=== PATIENT | female | born 1985 | race Two or more races ===

== ENCOUNTER 2020-08-23 07:13 | Inpatient (IN) ==
[2020-08-23] MEDS ORDERED: Lactated Ringers 1000 ml BAG 1,000 ML IV ONE ×2 (08:47→18:22)
[2020-08-23] MEDS ORDERED: Buffered Lidocaine 1% SYRIN 1 ml INTRADERM ONE (08:47)
[2020-08-23 09:46] LABS: ABS Eosinophils 0.1 10^3/ul (0-0.6); ABS Monocytes 0.7 10^3/ul (0-0.8); ABS Neutrophils 9.4 10^3/ul (1.5-7.7); Eosinophil % 0.8 %; Hematocrit 38 % (35-47); Hemoglobin 12.8 g/dL (12.0-16.0); Lymphocyte % 16.3 %; Mean Corpuscular HGB Conc 34 g/dL (31-36); Mean Corpuscular Hemoglobin 28 pg (27-31); Mean Corpuscular Volume 85 fL (80-97); Mean Platelet Volume 8.7 fL (7.4-10.4); Platelet Count 267 10^3/uL (150-450); Red Blood Count 4.52 10^6 /uL (3.70-4.87); Red Cell Distribution Width 14 % (10-15); White Blood Count 12.2 10^3/uL (3.5-10.8)
[2020-08-23 10:12] LABS: Urine Benzodiazepine Screen None Detected (None Detect); Urine Cannabinoids Screen None Detected (None Detect); Urine Opiates Screen None Detected (None Detect)
[2020-08-23] MEDS ORDERED: OBEPIDURAL 250 ML EPIDURAL ONE (13:38)
[2020-08-23] MEDS ORDERED: fentaNYL 250 mcg/5 ml 50 MCG/ML 5 ml VIAL (250 MCG) ONE (14:44)
[2020-08-23] MEDS ORDERED: fentaNYL 100 mcg/2 ml 50 MCG/ML VIAL ONE ×2 (14:45→22:45)
[2020-08-23] MEDS: Lactated Ringers 1000 ml BAG 1,000 ML IV SCH (15:18)
[2020-08-23] MEDS ORDERED: Sodium Citrate/Citric Acid LIQ 15 ML UDC PO PRN (18:22)
[2020-08-23] MEDS ORDERED: Phenylephrine 40 mcg/mL 10mL (400mcg) SYRINGE IV PUSH PRN ×2 (18:22)
[2020-08-23] MEDS ORDERED: EPHEDrine (Pressors) 50 MG/ML VIAL IV PUSH PRN ×2 (18:22)
[2020-08-23] MEDS ORDERED: OBEPIDURAL 250 ML EPIDURAL SCH (19:00)
[2020-08-23] MEDS ORDERED: Lactated Ringers 1000 ml BAG 1,000 ML IV SCH (19:00)
[2020-08-23] MEDS ORDERED: Oxytocin in LR 0 UNITS/0 ML BAG IVPB ONE (19:16)
[2020-08-23] MEDS: Ampicillin ADVAN 2 GM in NS 0.9% 100 ml BAG 100 ML IVPB SCH (20:22)
[2020-08-23] MEDS: Gentamicin ADULT 285 MG in NS 0.9% 100 ml BAG 100 ML IVPB SCH (20:35)
[2020-08-23] MEDS ORDERED: Lidocaine 2% w/ EPI 1:200,000 MPF 20 ML SDV VIAL ONE (22:45)
[2020-08-23] MEDS ORDERED: Sodium Bicarbonate 8.4% VIAL 1 MEQ/ML 50 ml VIAL (50 meq) ONE (22:45)
[2020-08-23] MEDS ORDERED: Dexamethasone IV 4 MG/ML VIAL 1 ml VIAL ONE (22:46)
[2020-08-23] MEDS ORDERED: Ondansetron 4 mg VIAL 2 MG/ML 2 ml VIAL ONE (22:46)
[2020-08-23] MEDS ORDERED: Oxytocin 10 UNITS/ML 1 ML VIAL ONE (22:46)
[2020-08-23] MEDS: Clindamycin 900 MG/D5W BAG 900 MG/50 ML BAG IVPB SCH (22:55)
[2020-08-23] MEDS ORDERED: Morphine PF AMP (0.5MG/ML) 5 MG/10 ML AMP ONE (23:32)
[2020-08-23] MEDS ORDERED: DiMENhydriNATE IV 50 mg/ml 1 ml VIAL ONE (23:35)
[2020-08-23] MEDS ORDERED: Phenylephrine 40 mcg/mL 10mL (400mcg) SYRINGE ONE (23:36)
[2020-08-23] MEDS ORDERED: EPHEDrine (Pressors) 50 MG/ML VIAL ONE (23:51)
[2020-08-24] MEDS ORDERED: Naloxone 0.4 mg VIAL 0.4 mg/ml 1 ml VIAL IV PRN ×2 (00:08→01:23)
[2020-08-24] MEDS ORDERED: Witch Hazel PAD JAR TOPICAL PRN (00:41)
[2020-08-24] MEDS ORDERED: Glycerin ADULT 2.4 gm SUPP PR PRN (00:41)
[2020-08-24] MEDS ORDERED: Dibucaine 1% OINT 28.35 GM TUBE PR PRN (00:41)
[2020-08-24] MEDS ORDERED: Lactated Ringers 1000 ml BAG 1,000 ML IV SCH (01:00)
[2020-08-24] MEDS ORDERED: Ondansetron 4 mg VIAL 2 MG/ML 2 ml VIAL IV PRN (01:23)
[2020-08-24] MEDS ORDERED: diPHENhydraMINE IV 50 MG/ML 1 ml VIAL (BENADRYL) IV PRN (01:23)
[2020-08-24] MEDS: Ampicillin ADVAN 2 GM in NS 0.9% 100 ml BAG 100 ML IVPB SCH ×4 (02:45→21:01)
[2020-08-24] MEDS: Clindamycin 900 MG/D5W BAG 900 MG/50 ML BAG IVPB SCH ×3 (07:17→23:55)
[2020-08-24 10:06] LABS: ABS Lymphocytes 1.9 10^3/ul (1.0-4.8); ABS Monocytes 1.3 10^3/ul (0-0.8); ABS Neutrophils 18.5 10^3/ul (1.5-7.7); Hematocrit 29 % (35-47); Hemoglobin 9.8 g/dL (12.0-16.0); Lymphocyte % 8.9 %; Mean Corpuscular HGB Conc 33 g/dL (31-36); Mean Corpuscular Hemoglobin 29 pg (27-31); Mean Corpuscular Volume 86 fL (80-97); Mean Platelet Volume 8.1 fL (7.4-10.4); Platelet Count 216 10^3/uL (150-450); Red Blood Count 3.44 10^6 /uL (3.70-4.87); Red Cell Distribution Width 14 % (10-15); White Blood Count 21.7 10^3/uL (3.5-10.8)
[2020-08-24] MEDS: Lactated Ringers 1000 ml BAG 1,000 ML IV SCH (20:23)
[2020-08-24] MEDS: Gentamicin ADULT 285 MG in NS 0.9% 100 ml BAG 100 ML IVPB SCH (20:26)
[2020-08-25] MEDS: Ampicillin ADVAN 2 GM in NS 0.9% 100 ml BAG 100 ML IVPB SCH (03:03)
[2020-08-25 06:51] LABS: ABS Eosinophils 0.1 10^3/ul (0-0.6); ABS Lymphocytes 2.5 10^3/ul (1.0-4.8); ABS Monocytes 0.8 10^3/ul (0-0.8); Eosinophil % 0.4 %; Hematocrit 32 % (35-47); Hemoglobin 10.7 g/dL (12.0-16.0); Lymphocyte % 12.7 %; Mean Corpuscular HGB Conc 34 g/dL (31-36); Mean Corpuscular Hemoglobin 29 pg (27-31); Mean Corpuscular Volume 86 fL (80-97); Mean Platelet Volume 8.1 fL (7.4-10.4); Platelet Count 252 10^3/uL (150-450); Red Blood Count 3.71 10^6 /uL (3.70-4.87); Red Cell Distribution Width 14 % (10-15); White Blood Count 19.4 10^3/uL (3.5-10.8)
[2020-08-25 14:39] LABS: Urine Appearance Clear; Urine Bilirubin Negative (Negative); Urine Blood Negative (Negative); Urine Color Yellow; Urine Glucose Negative (Negative); Urine Ketones Negative (Negative); Urine Nitrite Negative (Negative); Urine Protein Negative (Negative); Urine Specific Gravity 1.009 (1.010-1.030); Urine Urobilinogen Negative (Negative)
[2020-08-26 08:05] VITALS: BP 111/76
== END 2020-08-26 11:50 | disposition home or self-care (01) | DRG 786 ==
LOC: MCHOBOUT 07:13 → MCHOB 08:45
PROVIDERS: ADMIT Obstetrics & Gynecology; ATTEND Obstetrics & Gynecology